=== PATIENT | female | born 1985 | race Caucasian/White ===

== ENCOUNTER 2016-10-21 23:14 | Emergency (ER) | payer OTHER ==
[2016-10-21] MEDS ORDERED: KETOROLAC 60 MG/2 ML VIAL IVP STA (23:26)
[2016-10-21] MEDS ORDERED: SODIUM CHLORIDE 0.9% 1,000 ML IV ONE (23:26)
[2016-10-21] MEDS ORDERED: diphenhydrAMINE INJ 50 MG/ML VIAL IVP STA (23:26)
[2016-10-21] MEDS ORDERED: METOCLOPRAMIDE 10 MG/2 ML VIAL IVP STA (23:26)
[2016-10-22] MEDS ORDERED: KETOROLAC 60 MG/2 ML VIAL IVP STA (00:05)
[2016-10-22] MEDS ORDERED: METOCLOPRAMIDE 10 MG/2 ML VIAL IVP ONE (00:06)
[2016-10-22] MEDS ORDERED: KETOROLAC 30 MG/ML VIAL ONE (00:06)
[2016-10-22] MEDS ORDERED: diphenhydrAMINE INJ 50 MG/ML VIAL ONE (00:06)
== END 2016-10-22 01:25 | disposition home or self-care (01) ==
DX: G43.909 Migraine, unspecified, not intractable, without status migrainosus (principal)